=== PATIENT | male | born 1970 | race Caucasian/White ===

== ENCOUNTER 2017-02-25 20:40 | Emergency (ER) | payer BC, OTHER ==
[~2017-02-25] VITALS: Ht 185.4 cm; Wt 124.7 kg
[~2017-02-25 20:40] MED LIST: ALLOPURINOL 30300 M1 PO; PERCOCET 5-3251 EACH PO; TAMSULOSIN HCL0.4 MG PO
[2017-02-25] MEDS ORDERED: HYDROCODONE-AP1 EAC6 PO (22:27)
[2017-02-25] MEDS ORDERED: PREDNISONE 20 M20 MG PO (22:27)
[2017-02-25 22:42] VITALS: BP 103/56
== END 2017-02-25 22:48 | disposition home or self-care (01) ==
LOC: ER 20:40
DX: M54.31 Sciatica, right side (principal)